=== PATIENT | male | born 1985 | race Caucasian/White ===

== ENCOUNTER 2020-05-22 22:30 | Emergency (ER) | payer OTHER ==
[~2020-05-22] VITALS: Ht 182.9 cm; Wt 96.5 kg
[2020-05-22] MEDS ORDERED: AMOX1TAB61 PO (22:43)
--- NOTE | 2020-05-22 22:47 | PHYS DOC ---
Past History Past Medical History: No Pertinent History Adult General Chief Complaint Chief Complaint: ANIMAL BITE HPI HPI Patient is a 34-year-old male who presents for dog bite. This occurred just prior to arrival. Patient reports he was his own dog which is up-to-date on all vaccinations, reports his x2 dogs were in a fight with each other and he reached in with his right hand to separate them when one of his dogs bit down on his right hand. He has mild superficial abrasions and x1 puncture wound on the distal portion of right index finger without nailbed involvement. Patient immediately presented to our ER for evaluation. 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 Pain is tolerable at present, he has no changes in motor or sensory function Review of Systems Review of Systems Fourteen body systems of review of systems have been reviewed. See HPI for pertinent positives and negative responses, other reyes all other systems are negative, non-pertinent or non-contributory Physical Exam Physical Exam Constitutional: Well developed, well nourished, no acute distress, non-toxic appearance. HENT: Normocephalic, atraumatic, bilateral external ears normal, oropharynx moist, no oral exudates, nose normal. Eyes: PERRLA, EOMI, conjunctiva normal, no discharge. Neck: Normal range of motion, no tenderness, supple, no stridor. Cardiovascular: Heart rate regular, sinus rhythm, no murmurs rubs or gallops Lungs & Thorax: Bilateral breath sounds clear to auscultation Abdomen: Bowel sounds normal, soft, no tenderness, no masses, no pulsatile masses. Nonsurgical abdomen, no peritoneal signs Skin: Warm, dry, no erythema, no rash. Back: No tenderness, no CVA tenderness. Extremities: No cyanosis, no clubbing, ROM intact, no edema. Superficial abrasion over dorsal portion of right index finger approximately 1 cm in horizontal in orientation not crossing joint, patient has x1 superficial puncture wound distal to DIP of right middle finger without nailbed involvement, patient has mild superficial abrasion to right ring finger on dorsal portion without any involvement past epidermis. Neurologic: Alert and oriented X 3, normal motor & sensory function of right upp er extremity, medial, radial and ulnar functions intact with 2+ pulses of upper extremities bilaterally, no focal deficits noted. Psychologic: Affect normal, judgement normal, mood normal. EKG EKG [] Radiology/Procedures Radiology/Procedures [] Heart Score Risk Factors: Risk Factors: DM, Current or recent (<one month) smoker, HTN, HLP, family history of CAD, obesity. Risk Scores: Risk Factors: DM, Current or recent (<one month) smoker, HTN, HLP, family history of CAD, obesity. Course & Med Decision Making Course & Med Decision Making ABCs unremarkable Patient has dog bite from known dog which is up-to-date on vaccinations, patient himself is up-to-date on vaccinations. Physical exam nonconcerning, no concern for retained foreign body or fracture from force of dog bite Patient's hand irrigated under copious amounts of tap water, he was subsequently given 875 mg Augmentin while in ER for infection control/prevention and tolerated this well. He was sent home with a 5-day prescription for this Patient has good access to care in outpatient setting with PCP on post, all questions and concerns addressed prior to ER departure in stable condition Dragon Disclaimer Dragon Disclaimer This electronic medical record was generated, in whole or in part, using a voice recognition dictation system. Departure Departure: Impression: Primary Impression: Dog bite Disposition: HOME SELF CARE/HOMELESS Condition: STABLE Referrals: PCP,UNKNOWN (PCP) Patient Instructions: Amoxicillin; Clavulanic Acid tablets, Animal Bite Scripts Amoxicillin/Potassium Clav (AUGMENTIN 875-125 TABLET) 1 Each Tablet 1 TAB PO BID for dog bite for 5 Days, #10 TAB 0 Refills Prov: ALVARO CHACKO DO 05/22/20 ALVARO CHACKO DO May 22, 2020 22:47
[2020-05-22 23:00] VITALS: BP 110/80
[2020-05-22] MEDS ORDERED: AMOXICILLIN/K CLAV 875/125MG TABLET. PO ONE (23:00)
== END 2020-05-22 23:00 | disposition home or self-care (01) ==
LOC: ER 22:30
DX: S61.232A Puncture wound without foreign body of right middle finger without damage to nail, initial encounter (principal); S60.410A Abrasion of right index finger, initial encounter; W54.0XXA Bitten by dog, initial encounter; Y93.89 Activity, other specified; Y92.89 Other specified places as the place of occurrence of the external cause; Y99.8 Other external cause status
CPT/HCPCS: 99283